=== PATIENT | male | born 1985 | race Caucasian/White ===

== ENCOUNTER 2020-05-24 11:58 | Emergency (ER) | payer OTHER ==
[~2020-05-24] VITALS: Ht 180.3 cm; Wt 83.9 kg
[~2020-05-24 11:58] MED LIST: ALBUTEROL INH PO; ATIVAN0.5 MG PO; CLARITIN10 MG PO; FLONASE16 GM NS; FLOVENT HFA 2220 MC1 IH; MEDROLDOSEPACK PO; NOHOMEMEDICATIONS
[2020-05-24] MEDS ORDERED: TENORMIN25 MG PO (12:10)
[2020-05-24] MEDS ORDERED: EFFEXOR XR75 MG PO (12:11)
[2020-05-24 12:56] LABS: ABSOLUTE LYMPHOCYTES 1.4 thou/uL (0.8-5.3); ABSOLUTE MONOCYTES 0.5 thou/uL (0.0-1.2); ABSOLUTE NEUTROPHILS 5.4 thou/uL (1.6-8.1); BASOPHILS 0.3 %; EOSINOPHILS 0.2 %; HEMATOCRIT 47.6 % (42.0-52.0); LYMPHOCYTES 19.4 %; MCH 31.4 pg (26.0-34.0); MCHC 33.7 g/dL (28.0-37.0); MCV 93.1 fL (80.0-100.0); MONOCYTES 6.8 %; MPV 8.6 fl. (7.2-11.1); NUCLEATED RBCS 0 /100WBC; PLATELET COUNT* 261 thou/uL (150-400); POLYS 73.3 %; RBC 5.11 mil/uL (4.50-6.00); RDW-CV 13.7 % (10.5-14.5); WBC 7.4 thou/uL (4.0-11.0)
[2020-05-24 13:06] LABS: CALCIUM 8.7 mg/dL (8.5-10.1); POTASSIUM 3.2 mmol/L (3.5-5.1)
[2020-05-24 13:11] LABS: ALBUMIN 4.7 g/dL (3.4-5.0); TOTAL BILIRUBIN 0.2 mg/dL (<0.1-1.0); TOTAL PROTEIN 9.2 g/dL (6.4-8.2)
[2020-05-24 13:55] VITALS: BP 122/78
--- NOTE | 2020-05-25 12:23 | EKG ---
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 : 1985 Requested By: Belinda Sims Order Number: [id number] Reading MD: Oliver Pires Measurements Intervals Energy Rate: 116 P: 0 MS: 102 QRS: 45 QRSD: 85 T: -43 QT: 435 QTc: 605 Interpretive Statements Sinus tachycardia Nonspecific T abnormalities, lateral leads Prolonged QT interval Compared to ECG 04/12/2010 14:37:29 T-wave abnormality now present Prolonged QT interval now present Electronically Signed On 05-25-2020 12:23:35 ARM MAKER by Oliver Pires [email or web address] <ELECTRONICALLY SIGNED> By: Oliver Pires MD, FACC 05/25/20 1223 1203 120 Oliver Pires MD, [facility] /EPI
== END 2020-05-24 13:55 | disposition home or self-care (01) ==
LOC: M.ERS 11:58
PROVIDERS: Physician Assistant
DX: F41.9 Anxiety disorder, unspecified (principal); F14.10 Cocaine abuse, uncomplicated; I45.81 Long QT syndrome

== ENCOUNTER 2021-04-01 03:10 | Observation (INO) | payer OTHER ==
[~2021-04-01] VITALS: Ht 180.3 cm; Wt 86.2 kg
[~2021-04-01 03:10] MED LIST changes: +EFFEXOR XR75 MG PO; +TENORMIN25 MG PO
[2021-04-01 03:19] VITALS: BP 157/99
[2021-04-01] MEDS ORDERED: LIPITOR10 MG PO (03:23)
[2021-04-01 03:42] LABS: ABSOLUTE BASOPHILS 0.1 thou/uL (0.0-0.2); ABSOLUTE LYMPHOCYTES 2.8 thou/uL (0.8-5.3); ABSOLUTE MONOCYTES 0.6 thou/uL (0.0-1.2); ABSOLUTE NEUTROPHILS 3.4 thou/uL (1.6-8.1); BASOPHILS 1.1 %; EOSINOPHILS 0.6 %; HEMATOCRIT 44.7 % (42.0-52.0); HEMOGLOBIN 15.2 gm/dL (14.0-18.0); LYMPHOCYTES 40.3 %; MCH 31.2 pg (26.0-34.0); MCHC 33.9 g/dL (28.0-37.0); MONOCYTES 8.5 %; MPV 8.3 fl. (7.2-11.1); NUCLEATED RBCS 0 /100WBC; PLATELET COUNT* 283 thou/uL (150-400); POLYS 49.5 %; RBC 4.85 mil/uL (4.50-6.00); RDW-CV 13.4 % (10.5-14.5); WBC 6.9 thou/uL (4.0-11.0)
[2021-04-01 03:53] LABS: APTT 27.9 Seconds (25.0-31.3); INR 0.9; PROTIME 9.4 Seconds (9.20-11.50)
[2021-04-01 04:41] LABS: CALCIUM 9.1 mg/dL (8.5-10.1); CREATININE 1.1 mg/dL (0.6-1.3); POTASSIUM 3.2 mmol/L (3.5-5.1)
[2021-04-01 04:45] LABS: ALBUMIN 4.9 g/dL (3.4-5.0); TOTAL BILIRUBIN 0.1 mg/dL (<0.1-1.0)
[2021-04-01 04:56] LABS: TOTAL PROTEIN 8.7 g/dL (6.4-8.2)
--- NOTE | 2021-04-01 06:02 | NUR ---
MULTIPLE ATTEMPTS TO OBTAIN A URINE SAMPLE HAVE BEEN UNSUCCESFUL
[2021-04-01 10:00] VITALS: BP 120/62
[2021-04-01 14:00] VITALS: BP 133/67
[2021-04-01 17:53] VITALS: BP 120/74
[2021-04-01 18:00] VITALS: BP 150/73
[2021-04-01 21:30] VITALS: BP 124/78
[2021-04-01 22:19] LABS: URINE BILIRUBIN NEGATIVE (Negative); URINE BLOOD NEGATIVE (Negative); URINE CLARITY CLEAR; URINE COLOR YELLOW; URINE GLUCOSE-RANDOM NEGATIVE (Negative); URINE KETONES 1+ (Negative); URINE LEUKOCYTES-REFLEX NEGATIVE (Negative); URINE NITRITE-REFLEX NEGATIVE (Negative); URINE PROTEIN NEGATIVE (Negative); URINE SPECIFIC GRAVITY 1.015 (1.005-1.030); URINE UROBILINOGEN 0.2 E.U./dl (0.2-1.0)
[2021-04-01 22:24] LABS: AMP/METHAMP Negative (Negative); BARBITURATES Negative (Negative); BENZODIAZEPINES Negative (Negative); COCAINE POSITIVE (Negative); METHADONE Negative (Negative); OPIATES Negative (Negative); PCP Negative (Negative); THC Negative (Negative)
[2021-04-02] VITALS: BP 123/80
[2021-04-02 04:00] VITALS: BP 117/67
--- NOTE | 2021-04-02 06:21 | NUR ---
PT IS AO X4, VSS, WITH FLUIDS INFUSING PER ORDER. PT DENIES ANY PAIN, SOA, HEADACHE OR PALPITATIONS. HE HAS REMAINED IN BED MOST OF THE SHIFT AND SLEPT WELL. LUNGS CTA, NO COUGH, PT IS NSR IN HIGH 90s. ABD SOFT. NONTENER AND PT REPORTS LAST BM ONE DAY AGO. SKIN INTACT AND PT DENIES PAIN. UA WAS SENT TO LAB PER ORDER. CALL LIGHT IN REACH FOR PT SAFETY
[2021-04-02 08:00] VITALS: BP 126/89
--- NOTE | 2021-04-02 15:27 | NUR ---
Pt is A&O. Resides at home. Independent and active. No DME. No hx of HH or SNF. Goal is home at dc. Cardiology following. CM to offer community resources. Anticipate dc today
--- NOTE | 2021-04-02 15:44 | NUR ---
patient discharge instruction and discharge medication completed , In access removed before discharge . no issue voiced at this time .
--- NOTE | 2021-04-04 10:23 | CON ---
[address] [address] CONSULTATION Name: TONG ROBERTS Room: [address] Guillermo Wallis#: [id number] Admission: 04/01/21 Attend Phys: Kenzie Murrieta Discharge: 04/02/21 Date of : 85 Report #: [id number] THIS REPORT FOR: cc: FAM - No family physician/PCP FAM - No family physician/PCP Ricci Helms MD FACC ~ cc: Abimael Bahena MD FACC, Valarie Hogue DATE OF CONSULTATION: 04/01/2021 CARDIOLOGY CONSULT INDICATION: Tachycardia and chest discomfort. HISTORY OF PRESENT ILLNESS: The patient is a 35-year-old gentleman who presented to the Emergency Room with complaints of ongoing tachycardia and mild chest discomfort after using cocaine. On telemetry, the patient is noted to be in sinus tachycardia with rates varying from 120-150 beats per minute. EKG shows sinus tachycardia with some mild QT prolongation. There is no significant ST segment abnormalities noted. His initial troponin high sensitivity is less than 4. Upon interview, the patient denies chest pain. He continues to have mild tachycardia. He is without other cardiac complaint. The patient reports last cocaine use prior to visiting the Emergency Room this morning. He was seen as an outpatient with complaints of chest pain and palpitations. Holter monitor at that time showed primarily sinus rhythm without significant arrhythmia. PAST MEDICAL HISTORY: 1. Hypertension. 2. Hyperlipidemia. 3. Cocaine use. FAMILY HISTORY: Noncontributory. SOCIAL HISTORY: The patient reports alcohol use to a moderate degree. Reports use of cocaine. He does not smoke. HOME MEDICATIONS: Atenolol 25 mg daily, Lipitor 10 mg at bedtime, venlafaxine 75 mg daily. PHYSICAL EXAMINATION: VITAL SIGNS: Blood pressure 122/74, pulse 122. GENERAL: This is a healthy-appearing gentleman who is in no acute distress. HEENT: Head is normocephalic, atraumatic. [place] [address] CONSULTATION Name: TONG ROBERTS Room: [address] Guillermo Wallis#: [id number] Admission: 04/01/21 Attend Phys: Kenzie Murrieta Discharge: 04/02/21 Date of : 85 Report #: [id number] membranes moist. NECK: Shows no jugular venous distention. CHEST: Reveals clear lung tsang without wheezes or rales. CARDIAC: Reveals a tachycardic rhythm that is regular. I do not appreciate gallop or murmur. ABDOMEN: Reveals normal bowel sounds. The abdomen is soft, nontender. EXTREMITIES: Shows no edema. Peripheral pulses 2+ and palpable. SKIN: Warm and dry. DIAGNOSTIC DATA: A 12-lead EKG shows sinus tachycardia with mild QT prolongation. No acute ST or T-wave abnormalities noted. Chest x-ray shows no acute cardiopulmonary abnormality. LABORATORY DATA: Reviewed. CBC within normal limits. Electrolytes relatively normal with the exception of potassium 3.2. IMPRESSION AND RECOMMENDATIONS: 1. Tachycardia secondary to cocaine use. We will give diltiazem bolus and follow clinically. Echocardiogram ordered and pending to rule out underlying cardiomyopathy. The patient has ruled out for myocardial infarction with initial high sensitivity troponin. Continue troponin and serial evaluation. 2. Hypertension. Blood pressure adequately controlled at this time. The patient had been on atenolol at home. This is perhaps not the best medication for him. We would recommend a calcium channel juan carlos instead. Blood pressure otherwise appears stable at this time. 3. Hyperlipidemia. The patient is on atorvastatin. We will continue. <ELECTRONICALLY SIGNED> By: Ricci Helms MD, FACC 04/04/21 1023 0738 [id number] Helms MD, FACC /nt
== END 2021-04-02 15:30 | disposition home or self-care (01) ==
LOC: M.ERS 03:10 → M.TBA-ER 06:00 → M.ORTHSURG 18:00
PROVIDERS: Personal Emergency Response Attendant; ADMIT Internal Medicine; ATTEND Internal Medicine
DX: F14.10 Cocaine abuse, uncomplicated (principal); R07.89 Other chest pain; R00.0 Tachycardia, unspecified; F41.9 Anxiety disorder, unspecified; R42 Dizziness and giddiness; F10.139 Alcohol abuse with withdrawal, unspecified; Z20.822 Contact with and (suspected) exposure to COVID-19; I10 Essential (primary) hypertension; E78.5 Hyperlipidemia, unspecified; Z79.899 Other long term (current) drug therapy; Z79.01 Long term (current) use of anticoagulants; Y90.9 Presence of alcohol in blood, level not specified

== ENCOUNTER 2021-04-30 05:31 | Emergency (ER) | payer OTHER ==
[~2021-04-30] VITALS: Ht 180.3 cm; Wt 86.2 kg
[~2021-04-30 05:31] MED LIST changes: +LIPITOR10 MG PO
[2021-04-30] MEDS ORDERED: VERAPAMIL ER180 M1 PO (05:41)
[2021-04-30 05:50] LABS: ABSOLUTE EOSINOPHILS 0.1 thou/uL (0.0-0.7); ABSOLUTE LYMPHOCYTES 1.6 thou/uL (0.8-5.3); ABSOLUTE NEUTROPHILS 3.6 thou/uL (1.6-8.1); BASOPHILS 0.8 %; HEMATOCRIT 45.2 % (42.0-52.0); HEMOGLOBIN 15.4 gm/dL (14.0-18.0); LYMPHOCYTES 25.5 %; MCH 31.6 pg (26.0-34.0); MCV 92.8 fL (80.0-100.0); MPV 8.2 fl. (7.2-11.1); NUCLEATED RBCS 0 /100WBC; PLATELET COUNT* 242 thou/uL (150-400); POLYS 56.7 %; RBC 4.87 mil/uL (4.50-6.00); RDW-CV 13.6 % (10.5-14.5); WBC 6.3 thou/uL (4.0-11.0)
[2021-04-30 05:58] LABS: CALCIUM 9.4 mg/dL (8.5-10.1)
[2021-04-30 06:03] LABS: ALBUMIN 4.4 g/dL (3.4-5.0); MAGNESIUM 2.2 mg/dL (1.8-2.4); TOTAL BILIRUBIN 0.7 mg/dL (<0.1-1.0); TOTAL PROTEIN 8.6 g/dL (6.4-8.2)
[2021-04-30 08:05] LABS: URINE BILIRUBIN NEGATIVE (Negative); URINE BLOOD NEGATIVE (Negative); URINE CLARITY CLEAR; URINE COLOR YELLOW; URINE GLUCOSE-RANDOM NEGATIVE (Negative); URINE KETONES 1+ (Negative); URINE LEUKOCYTES-REFLEX NEGATIVE (Negative); URINE NITRITE-REFLEX NEGATIVE (Negative); URINE PROTEIN NEGATIVE (Negative); URINE UROBILINOGEN 0.2 E.U./dl (0.2-1.0)
[2021-04-30 08:20] LABS: AMP/METHAMP Negative (Negative); BARBITURATES Negative (Negative); BENZODIAZEPINES Negative (Negative); COCAINE Negative (Negative); METHADONE Negative (Negative); OPIATES Negative (Negative); PCP Negative (Negative); THC Negative (Negative)
[2021-04-30 10:15] VITALS: BP 137/83
--- NOTE | 2021-04-30 17:26 | EKG ---
[place] [address] ELECTROCARDIOGRAM REPORT Name: TONG ROBERTS Room: [facility]#: [id number] Admission: 04/30/21 Attend Phys: Discharge: 04/30/21 Date of : 85 Date of Service: 04/30/21 0534 Report #: [id number] THIS REPORT FOR: //name// [facility] ED Test Date: 2021-04-30 Test Time: 05:34:08 Pat Name: TONG ROBERTS Department: Room: Gender: Fire Alarm Repairer: MICAELA : 1985 Requested By: Suzanna Plasencia Order Number: [id number] MD: Ricci Helms Measurements Intervals [place] Rate: 141 P: 79 [place]: 178 QRS: 62 QRSD: 71 T: 239 QT: 250 QTc: 383 Interpretive Statements Sinus tachycardia Probable left atrial enlargement Compared to ECG 05/24/2020 12:03:36 T-wave abnormality no longer present Prolonged QT interval no longer present Electronically Signed On 04-30-2021 17:26:31 CDT by Ricci Helms [email or web address] <ELECTRONICALLY SIGNED> By: Ricci Helms MD, FACC 04/30/21 1726 0534 0534 Ricci Helms MD, FAC /EPI
--- NOTE | 2021-04-30 17:26 | EKG ---
[place] [address] ELECTROCARDIOGRAM REPORT Name: TONG ROBERTS Room: [facility]#: [id number] Admission: 04/30/21 Attend Phys: Discharge: 04/30/21 Date of : 85 Date of Service: 04/30/216[address] Report #: [id number] THIS REPORT FOR: //name// [facility] ED Test Date: 2021-04-30 Test Time: 06:03:35 Pat Name: TONG ROBERTS Department: Room: Gender: Financial Officer: MICAELA : 1985 Requested By: Suzanna Plasencia Order Number: [id number] MD: Ricci Helms Measurements Intervals [employer] Rate: 112 P: 94 [place]: 268 QRS: 52 QRSD: 86 T: 5 QT: 386 QTc: 527 Interpretive Statements Sinus tachycardia Prolonged [place] interval Borderline repolarization abnormality Prolonged QT interval Compared to ECG 04/30/2021 05:34:08 First degree AV block now present Prolonged QT interval now present Electronically Signed On 04-30-2021 17:26:39 CDT by Ricci Helms [email or web address] <ELECTRONICALLY SIGNED> By: Ricci Helms MD, FACC 04/30/21 1726 0603 Ricci Helms MD, FAC /EPI
--- NOTE | 2021-04-30 17:28 | EKG ---
[place] [address] ELECTROCARDIOGRAM REPORT Name: TONG ROBERTS Room: [facility]#: [id number] Admission: 04/30/21 Attend Phys: Discharge: 04/30/21 Date of : 85 Date of Service: 04/30/21 0833 Report #: [id number] THIS REPORT FOR: //name// [facility] ED Test Date: 2021-04-30 Test Time: 08:33:37 Pat Name: TONG ROBERTS Department: Room: Gender: Rn Child: GAIL : 1985 Requested By: Shabbir Garcias Order Number: [id number] MD: Ricci Helms Measurements Intervals [place] Rate: 104 P: 53 IL: 178 QRS: 39 QRSD: 83 T: -12 QT: 328 QTc: 432 Interpretive Statements Sinus tachycardia Borderline T abnormalities, inferior leads Compared to ECG 04/30/2021 06:03:35 T-wave abnormality now present First degree AV block no longer present Prolonged QT interval no longer present Electronically Signed On 04-30-2021 17:27:57 CDT by Ricci Helms [email or web address] <ELECTRONICALLY SIGNED> By: Ricci Helms MD, FACC 04/30/21 1727 2 Ricci Helms MD, FAC /EPI
== END 2021-04-30 10:16 | disposition still patient (30) ==
LOC: M.ERS 05:31
PROVIDERS: Emergency Medicine
DX: E87.6 Hypokalemia (principal); R07.89 Other chest pain; R00.2 Palpitations; R00.0 Tachycardia, unspecified; I10 Essential (primary) hypertension; E78.5 Hyperlipidemia, unspecified; F41.9 Anxiety disorder, unspecified; F14.11 Cocaine abuse, in remission; Z79.899 Other long term (current) drug therapy

== ENCOUNTER → 2021-05-06 | Outpatient (CLI) | payer OTHER ==
[~2021-05-06] MED LIST changes: +VERAPAMIL ER180 M1 PO
--- NOTE | 2021-05-07 17:49 | CARDNUC ---
[place] [address] CARDIAC NUCLEAR IMAGING REPORT Name: TONG ROBERTS Room: [facility]#: [id number] Admission: 05/06/21 Attend Phys: Sophie Bahena, Discharge: Date of : 85 Date of Service: 05/07/21 1748 Report #: [id number] THIS REPORT FOR: cc: FAM - No family physician/PCP FAM - No family physician/PCP Ricci Helms MD [facility] ~ ADDENDUM APPROVED REPORT Imaging Protocol: Rest Tc-99m/Stress Tc-99m 1 day Study performed: 05/06/2021 10:45:00 Indication: chest pain, Palpitations Patient Location: Out-Patient Stress Tech: Kristy Tavares Stress Nurse: ISAAK Higuera NM Tech:DOMITILA Minor Ht: 5 ft 11 in HR: 130 bpm BMI: 0 Rhythm: Sinus Tachycardia Medical History Medical History: SOB Medications: verapamil, atorvastatin Allergies: No known drug allergies Cardiac Risk Factors: history of drug use, HTN, Hyperlipidemia Previous Cardiac Procedures: PCI Exercise History: Physically active Decided to use lexiscan for this patient due to history of cocaine use and chest pain with exercising after. Patient heart rate is 130 resting. He is hypertensive. Stress test was uneventful with patient getting an upset stomach and having immediate shortness of breath. No chest pain noted. Resting Data Rest SPECT myocardial perfusion imaging was performed in supine position 30 minutes following the intravenous injection of 8.8 mCi of Tc-99m Sestamibi. Time of rest injection: 1055 Date: 05/06/2021 The images were gated to evaluate regional wall motion and calculate left ventricular ejection fraction. Administration Route: IV Administration Site: [place] [address] CARDIAC NUCLEAR IMAGING REPORT Name: TONG ROBERTS Room: [facility]#: [id number] Admission: 05/06/21 Attend Phys: Sophie Bahena, Discharge: Date of : 85 Date of Service: 05/07/21 1748 Report #: [id number] Pharmacologic Stress Pharmacologic stress test was performed by injecting Regadenoson 0.4 mg IV push over 10-15 seconds immediately followed by the intravenous injection of 32.6 mCi of Tc-99m Sestamibi. Time of stress injection: 1155 Date: 05/06/2021 Administration Route: IV Administration Site: [facility] Gated Stress SPECT was performed 40 minutes after stress injection. The images were gated to evaluate regional wall motion and calculate left ventricular ejection fraction. Prone imaging was performed. Stress Test Details Stress Test: Pharmacologic stress testing performed using 0.4 mg of regadenoson per 5 mL given IV over 10 seconds. Reason for pharmacologic stress test: history of drug use. 60 mg caffeine given for headache. HR Max Heart Rate (APMHR): 184 bpm Resting HR: 130 bpm Target HR (85% APMHR): 156 bpm Max HR Achieved: 171 bpm % of APMHR: 92 Recovery HR: 171 bpm HR response to stress: Accelerated HR response to stress BP Resting BP: 162/89 mmHg Max BP: 165/95 mmHg Recovery BP: 142/95 mmHg BP response to stress: Normal blood pressure response to stress. ECG Resting ECG: Sinus Tachycardia Stress ECG: Sinus Tachycardia ST Change: None Arrhythmia: None Recovery ECG: sinus tachycardia Recovery ST Change: None Recovery Arrhythmia: None Clinical Reason for Termination: Completed protocol Stress Symptoms: upset stomach, st depression The patient tolerated Lexiscan infusion [place] [address] CARDIAC NUCLEAR IMAGING REPORT Name: TONG ROBERTS Room: [facility]#: [id number] Admission: 05/06/21 Attend Phys: LaurenceIgnacio Abimael Bahena, Discharge: Date of : 85 Date of Service: 05/07/21 1748 Report #: [id number] Stress ECG Conclusion The baseline twelve-lead EKG shows sinus tachycardia without significant ST segment abnormality. EKGs obtained during and post Lexiscan infusion show persistent sinus tachycardia with no significant ST segment changes when compared to baseline. There were no other stress-induced arrhythmias. Study Quality Study: Good Artifact: No artifact Study Data At rest, the left ventricular ejection fraction was 80%.. Post stress, the left ventricular ejection was 74%.. TID = 1.06. Perfusion Perfusion images obtained at rest and post Lexiscan stress showed uniform uptake of the radioisotope throughout the myocardium. There were no defects to suggest infarct or ischemia. Wall Motion Normal left ventricular wall motion. Nuclear Conclusion ECG Findings: negative for ischemia Clinical Findings: negative for ischemia Nuclear Findings: negative for ischemia Exercise Capacity: not assessed Left Ventricular Function: normal Risk Study: low Perfusion images show no defect to suggest infarct or ischemia. Left ventricular systolic function is normal on gated studies. This is a low risk study. <Conclusion> The baseline twelve-lead EKG shows sinus tachycardia without significant ST segment abnormality. EKGs obtained during and post Lexiscan infusion show persistent sinus tachycardia with no significant ST segment changes when compared to baseline. There were no other stress-induced arrhythmias. <ELECTRONICALLY SIGNED> By: Ricci Helms MD, FACC 05/07/21 1748 47 174 Ricci Helms MD, FACC /INF
== END ==
LOC: M.NUC 09:00
PROVIDERS: ATTEND Internal Medicine
DX: R00.0 Tachycardia, unspecified (principal); R07.9 Chest pain, unspecified; R00.2 Palpitations; R94.31 Abnormal electrocardiogram [ECG] [EKG]; I10 Essential (primary) hypertension